=== PATIENT | male | born 1945 | race Caucasian/White ===

== ENCOUNTER 2017-11-11 19:01 | Emergency (ER) | payer MEDICARE ==
[~2017-11-11] VITALS: Ht 177.8 cm; Wt 82.0 kg
[2017-11-11 19:14] VITALS: BP 112/78
== END 2017-11-11 22:17 | disposition left against medical advice (07) ==
LOC: ER 21:59
DX: R07.9 Chest pain, unspecified (principal); Z53.21 Procedure and treatment not carried out due to patient leaving prior to being seen by health care provider